=== PATIENT | female | born 1970 | race Caucasian/White ===

== ENCOUNTER 2018-08-29 09:16 | Day surgery (SDC) | payer BC ==
[~2018-08-29] VITALS: Ht 162.6 cm; Wt 57.1 kg
[2018-08-29] VITALS (9 sets, daily range): BP systolic 103–141; BP diastolic 55–86; PULSE 74–101; RESP 12–19; Ht 162.6 cm; Wt 57.1 kg
[~2018-08-29 09:16] MED LIST: DESFLURANE 15 MIN ONE
[2018-08-29] MEDS ORDERED: HYDR-3980 PO (09:57)
[2018-08-29] MEDS ORDERED: ALPR0.5T PO (09:58)
[2018-08-29] MEDS ORDERED: LACTATED RINGER'S 1,000 ML IV SCH (10:00)
[2018-08-29] MEDS ORDERED: LIDOCAINE 1% (MPF) 30 ML INJ ONE (10:50)
[2018-08-29] MEDS ORDERED: DEXAMETHASONE 4 MG/ML 1 ML INJ ONE (10:51)
[2018-08-29] MEDS ORDERED: BUPIVACAINE 0.5% (SDV) 30 ML INJ ONE (10:51)
--- NOTE | 2018-08-29 11:18 | PREAC ---
Date/Time of Note Date/Time of Note DATE: 08/29/18 TIME: 11:15 Anesthesia Eval and Record Evaluation Time Pre-Procedure Interview DATE: 08/29/18 TIME: 11:15 Age 47 Sex female NPO: 8 hrs Preoperative diagnosis LEFT FOOT BUNION Planned procedure OSTEOTOMY, BUNIONECTOMY WITH FIXATION FIRST METATARSAL LEFT FOOT, LESVIA OSTEOTOMY Past Medical History Past Medical History: Includes Psych: Anxiety Surgery & Anesthesia Issues No known issue Meds Anticoagulation: No Beta Melissa within 24 hr: No Reason Beta Melissa not given: Pt. not on B-Melissa Reported Medications Alprazolam* (Xanax*) 0.5 Mg Tab, 0.5 MG PO QHS PRN for SLEEP, TAB 08/29/18 Hydrocodone/Acetaminophen ([place] 10-325 Tablet) 1 Each Tablet, 1 EACH PO TID PRN for PAIN, TAB 08/29/18 Current Medications Lactated Ringer's 1,000 ml @ 25 mls/hr Q24H IV ; Start 08/29/18 at 10:00 Meds reviewed: Yes Allergies Coded Allergies: No Known Drug Allergies (Verified Allergy, Unknown, 08/29/18) Allergies Reviewed: Yes Labs/Studies Labs Reviewed: Reviewed by anesthesiologist test: Negative Studies: ECG (NL) Pre-procedure Exam Last vitals Vital Signs Date Temp Pulse Resp B/P (MAP) Pulse Ox O2 O2 Flow FiO2 Time Delivery Rate 08/29/18 98.9 77 16 118/71 100 Room Air 10:10 (87) Airway: Adequate mouth opening, Adequate thyromental dist Mallampati: Mallampati II Teeth: Normal Lung: Normal Heart: Normal ASA Physical Status ASA physical status: 2 Emergency: None Planned Anesthetic General/MAC: ETT Planned Pain Management Parenteral pain med Pre-operative Attestations Prior to commencing anesthesia and surgery, the patient was re-evaluated, there was verification of: *The patient's identity *The results of appropriate recent lab work and preoperative vital signs *The above evaluation not changing prior to induction *Anesthetic plan, risk benefits, alternative and complications discussed with patient/family; questions answered; patient/family understands, accepts and wishes to proceed. Choco Hawk M.D. August 29, 2018 11:18
[2018-08-29] MEDS ORDERED: GLYCOPYRROLATE 0.4 MG INJ ONE (11:20)
[2018-08-29] MEDS ORDERED: PROPOFOL 20 ML ONE (11:20)
[2018-08-29] MEDS ORDERED: CEFAZOLIN 1 GM INJ ONE (11:20)
[2018-08-29] MEDS ORDERED: NEOSTIGMINE 3 MG/3 ML SYRINGE ONE (11:20)
[2018-08-29] MEDS ORDERED: ROCURONIUM 50 MG INJ ONE (11:20)
[2018-08-29] MEDS ORDERED: FENTAnyl 50 MCG/ML VIAL ONE ×2 (11:21→12:18)
[2018-08-29] MEDS ORDERED: DEXAMETHASONE 4 MG/ML 5 ML INJ ONE (11:21)
[2018-08-29] MEDS ORDERED: ONDANSETRON 4 MG INJ ONE (11:21)
[2018-08-29] MEDS ORDERED: MIDAZOLAM 1 MG/ML 2 ML INJ ONE (11:21)
[2018-08-29] MEDS ORDERED: TRIMETHOBENZAMIDE 100 MG/ML VIAL IM PRN (11:30)
[2018-08-29] MEDS ORDERED: OXYCODONE/ACETAMINOPHEN (5/325) TAB PO PRN ×2 (11:30)
[2018-08-29] MEDS ORDERED: hydrALAzine 20 MG INJ IV PRN (11:30)
[2018-08-29] MEDS ORDERED: DIPHENHYDRAMINE 50 MG INJ IV PRN (11:30)
[2018-08-29] MEDS ORDERED: IPRATROPIUM (NEB) 0.5 MG/2.5 ML AMP HHN PRN (11:30)
[2018-08-29] MEDS ORDERED: HYDROmorphONE 1 MG/5 ML IV SYRINGE IV PRN ×3 (11:30)
[2018-08-29] MEDS ORDERED: MIDAZOLAM 1 MG/ML 2 ML INJ IV PRN (11:30)
[2018-08-29] MEDS ORDERED: LABETALOL HCL 20MG INJ IV PRN (11:30)
[2018-08-29] MEDS ORDERED: EPHEDrine 25 MG/5 ML SYG IV PRN (11:30)
[2018-08-29] MEDS ORDERED: MEPERIDINE 25 MG INJ IV PRN (11:30)
[2018-08-29] MEDS ORDERED: ALBUTEROL 0.083% (NEB) 2.5 MG/3 ML AMP HHN PRN (11:30)
[2018-08-29] MEDS ORDERED: FENTAnyl 50 MCG/ML VIAL IV PRN ×3 (11:30)
[2018-08-29] MEDS ORDERED: ONDANSETRON 4 MG INJ IV PRN (11:30)
--- NOTE | 2018-08-29 11:40 | HPN ---
Date/Time of Note Date/Time of Note DATE: 08/29/18 TIME: 11:40 Interval H&P Admission Note Pt. seen H&P reviewed: No system changes LILLIAN QUEVEDO DPM August 29, 2018 11:40
[2018-08-29] MEDS ORDERED: POVIDONE IODINE 10% 28.4 GM OINT ONE (12:30)
[2018-08-29] MEDS ORDERED: BUPIVACAINE 0.5% (MPF) 30 ML INJ EPI ONE (13:07)
--- NOTE | 2018-08-29 13:23 | PAC ---
Date/Time of Note Date/Time of Note DATE: 08/29/18 TIME: 13:23 Post-Anesthesia Notes Post-Anesthesia Note Last documented vital signs Vital Signs Date Temp Pulse Resp B/P (MAP) Pulse Ox O2 O2 Flow FiO2 Time Delivery Rate 08/29/18 98.9 77 16 118/71 100 Room Air 10:10 (87) Activity: WNL Respiratory function: WNL Cardiovascular function: WNL Mental status: Baseline Pain reasonably controlled: Yes Hydration appropriate: Yes Nausea/Vomiting absent: Yes Choco Hawk M.D. August 29, 2018 13:23
--- NOTE | 2018-08-29 13:25 | SIPON ---
Date/Time of Note Date/Time of Note DATE: 08/29/18 TIME: 13:21 Operative Report Preoperative Diagnosis Hallux abductovalgus with bunion left foot Postoperative Diagnosis Same Operation/Procedure Performed Osteotomy with bunionectomy with fixation first metatarsal left foot Jarrod osteotomy with fixation proximal phalanx hallux left foot and active shield by right 4 x 4 Surgeon see signature line ward assistant None Anesthesia: general Estimated blood loss: minimal Transfusion Required none Specimen Bone Grafts/Implants Implants right stable 8 x 8 the proximal phalanx left and a 12 x 12 right staple on the first metatarsal and active shield of 4 x 4 centimeter none Complications none LILLIAN QUEVEDO DPM August 29, 2018 13:24
--- NOTE | 2018-08-29 16:40 | PREOPHP ---
DATE OF ADMISSION: 08/29/2018 HISTORY OF PRESENT ILLNESS: The patient is having pain in the left foot on the bunion side and the p atient has been explained surgery, complications, alternatives and elected to have bunion surgery. ALLERGIES: SHE IS NOT ALLERGIC TO ANY MEDICINES. MEDICATIONS: She is not taking any medicine. REVIEW OF SYSTEMS: Heart, lung, liver, kidney and thyroid negative. Diabetes negative. SOCIAL HISTORY: She smokes 1 pack per week and alcohol occasionally. See any other pertinent history and upper extremity physical exam by ____. PHYSICAL EXAMINATION: EXTREMITIES: Lower extremity physical exam shows the DP and PT equal and regular, +3. NEUROLOGICAL: Negative for pathology. DERMATOLOGICAL: Negative for pathology. MUSCULOSKELETAL: Show a hallux abductovalgus with bunion, left foot. FINAL DIAGNOSIS: Hallux abductovalgus with bunion, left foot. Dictated By: LILLIAN SCOTT/LAURA Conf#: [id number] DID#: [id number]
--- NOTE | 2018-08-29 20:57 | OPR ---
DATE OF OPERATION: 08/29/2018 PREOPERATIVE DIAGNOSIS: Hallux abductovalgus with bunion formation, left foot. FINAL DIAGNOSIS: Hallux abductovalgus with bunion formation, left foot. PROCEDURES: Osteotomy and bunionectomy with fixation, first metatarsal, left foot; Jarrod osteotomy wi th fixation, proximal phalanx hallux, left foot; and application of Accu-Seal. SURGEONS: Lillian Marcelo DPM DESCRIPTION OF PROCEDURE: The patient was brought to the surgical suite, placed in a supine position . The patient was under general anesthesia with pneumatic cuff at [facility]. The patient had sterile prep and drape and findings consistent with the pre and postop diagnoses. The first incision was a dorsal medial longitudinal incision over the first metatarsal phalangeal joint using sharp and blunt dissection. The incision was carried deep. The Bovie was used as necessary. A longitudinal capsulo tony was made and the head of the first metatarsal was freed of its attachment dorsally and medially. The medial eminence was resected and the horizontal V-osteotomy was made with the apex centered at the head of the metatarsal, and then the 2 cuts, dorsal and planter, were cut in a V-shape, through a nd through, and the capital fragment was then moved laterally and impacted on the shaft. The overhan g in the shaft was then removed and a K-wire was placed across the osteotomy site and a screw was harmeet maru across the osteotomy site, but it would not hold; therefore, the screw was then taken out and a W right Medical staple was used going the medial aspect of the osteotomy site and across it. A 12 x 12 head was put in and the osteotomy site was held solid. The area was then cleansed and attention was now turned to the proximal phalanx which was freed of its attachments and an Jarrod osteotomy was made with the apex going laterally and the base medially, approximately 2.5 mm at its widest point and th en using compression, the distal aspect near the proximal phalanx was impacted upon the base of the p roximal phalanx. The osteotomy sites was then fixated using a Mendoza staple of 8 x 8 and that fixate d the osteotomy site and then the Actishield was applied to the first metatarsal area and the area wa s then coapted using 3-0 Vicryl and the skin was coapted using 5-0 Nylon. The area was injected with 0.5% Marcaine to prolong anesthesia and dressing of half-inch Steri-Strips, Betadine ointment, 4 x 4 's and packed in with sterile gauze was then placed over the surgical site and the area was the injec carlyle. Was then dressed using 4 x 4's, Karan and Coban, with an outer layer of Coban made into a semi- compressive dressing. The patient tolerated the surgery well and was returned to recovery room in sa tisfactory condition. Dictated By: LILLIAN SCOTT/LAURA Conf#: [id number] DID#: [id number]
== END 2018-08-29 15:35 | disposition home or self-care (01) ==
LOC: SDS 09:16
PROVIDERS: ATTEND Podiatrist
DX: M20.12 Hallux valgus (acquired), left foot (principal); M21.612 Bunion of left foot
CPT/HCPCS: 28299; 88304; 88311; J0690; J1100; J2250; J2405; J2710; J3010; Z7610; 84703